=== PATIENT | male | born 2005 | race Two or more races ===

== ENCOUNTER 2024-08-25 19:58 | Emergency (ER) | payer MEDICAID, SELFPAY ==
[2024-08-25 19:59] VITALS: BMI 17.6
[2024-08-25 20:30] VITALS: BP 106/71; PULSE 82; RESP 17; TEMP 36.3; O2SAT 97
--- NOTE | 2024-08-25 21:28 | EDRME_ITS ---
Rapid Medical Screening Exam [facility] Arrival date/time: 08/25/24 19:58 19M with history of occasional marijuana use presents to ED with 1 day of epigastric pain and N/V. Chief Complaint: Nausea/Vomiting/Diarrhea Vital signs: Vital Signs Temperature 97.4 F 08/25/24 20:30 Pulse Rate 82 08/25/24 20:30 Respiratory Rate 17 08/25/24 20:30 Blood Pressure 106/71 08/25/24 20:30 Pulse Oximetry (%) 97 08/25/24 20:30 Oxygen Delivery Method Room Air 08/25/24 20:30
[2024-08-25 21:48] LABS: Basophils # (Auto) 0.1 Thou/mm3 (0.0-0.2); Basophils % (Auto) 0 % (0-2.5); Eosinophils % (Auto) 0 % (0-10); Hematocrit 47.7 % (41.0-53.0); Hemoglobin 16.1 g/dL (13.5-16.0); Immature Granulocytes % (Auto) 0 % (0-0); Immature Granulocytes Auto 0.05 Thou/mm3 (0.00-0.00); Lymphocytes # (Auto) 1.2 Thou/mm3 (1.0-4.8); Lymphocytes % (Auto) 8 % (10-50); Mean Corpuscular HGB Conc 33.8 g/dl (31.0-37.0); Mean Corpuscular Volume 89 fL (80-100); Monocytes # (Auto) 0.7 Thou/mm3 (0.0-0.8); Monocytes % (Auto) 5 % (0-12); Neutrophils # (Auto) 13.1 Thou/mm3 (1.8-7.7); Neutrophils % (Auto) 87 % (37-80); Nucleated Red Blood Cell % 0 /100 WBC (0); Platelet Count 259 Thou/mm3 (140-440); RDW Standard Deviation 42.6 fL (35.1-43.9); Red Blood Count 5.37 Miln/mm3 (4.50-5.90); White Blood Count 15.1 Thou/mm3 (3.8-10.6)
[2024-08-25] MEDS: ONDANSETRON ODT 4 MG TABRAP PO (21:54)
[2024-08-25 22:09] LABS: Alanine Aminotransferase 16 U/L (10-49); Albumin, Serum 4.9 gm/dL (3.5-5.0); Albumin/Globulin Ratio 1.4 (1.2-2.2); Alkaline Phosphatase 95 U/L (46-116); Anion Gap 5 (7-16); Aspartate Amino Transferase 25 U/L (0-34); BUN/Creatinine Ratio 15 Ratio (12-20); Blood Urea Nitrogen 17 mg/dL (9-23); Calcium 9.8 mg/dL (8.3-10.6); Calcium (Corrected) 9.8 mg/dL (8.5-10.1); Carbon Dioxide 31.8 mMol/L (20.0-31.0); Chloride 101 mMol/L (98-107); Creatinine (Component) 1.1 mg/dL (0.6-1.3); Estimated Creatinine Clearance 88.6 mL/min (>60); Globulin 3.4 gm/dL (2.3-3.5); Glucose 101 mg/dL (74-106); Lipase 36 U/L (12-53); Osmolality,Calculated 277 (275-295); Potassium 4.8 mMol/L (3.4-5.1); Sodium 138 mMol/L (136-145); Total Protein 8.3 gm/dL (5.7-8.2); eGFR > 60 See Note
[2024-08-25] MEDS: MG HYD/AL HYD/SIME (Maalox Reg) SUSP 30 ML UDC PO (22:19)
[2024-08-25 23:17] VITALS: BP 113/73; PULSE 84; RESP 18; TEMP 36.9; O2SAT 97
[2024-08-26 00:15] LABS: Collection Type, Urine Clean Catch; Squamous Epithelial Cell,Urine 0 /hpf (0-5); WBC,Urine 0 /hpf (0-5)
[2024-08-26 00:23] LABS: Bilirubin,Urine Negative (Negative); Blood,Urine 3+ (Negative); Clarity,Urine Turbid (Clear/Hazy); Color,Urine Yellow (Lt Yel-Yel); Glucose, Urine Negative (Negative); Ketones,Urine Negative (Negative); Leukocyte Esterase,Urine Negative (Negative); Nitrite,Urine Negative (Negative); PH,Urine 6.5 (5.0-7.0); Protein,Urine 3+ (Neg - Trace); RBC,Urine 283 /hpf (0-3); Specific Gravity,Urine 1.033 (1.001-1.035)
[2024-08-26 00:28] LABS: Amphetamine/Methamp Scrn,U Negative (Negative); Barbiturate Screen,Urine Negative (Negative); Benzodiazepines Screen,Urine Negative (Negative); Benzoylecgonine Screen, Ur Negative (Negative); Fentanyl Screen,Urine Negative (Negative); Opiate Screen,Urine Negative (Negative); THC Screen,Urine Negative (Negative)
--- NOTE | 2024-08-26 00:28 | XR_ITS ---
Examination: CT abdomen with intravenous contrast CT pelvis with intravenous contrast 2-D coronal reconstructions 2-D sagittal reconstructions Date and time of exam:September 05, 2024 0301 hrs. Indications: Onset abdominal pain nausea today. CTDI: vol (mGy) 4.26 DLP: (mGycm) 238 Technique: Multiple axial sections of the abdomen and pelvis have been obtained. 64 slice high-resolution scanner used. 3 mm axial sections have been obtained, post intravenous injection 60 cc [id number] 2-D sagittal, coronal reconstructions obtained. Low dose protocols were performed. One or more of the following dose reduction techniques were used; automated exposure control, adjustment of the mA and/or KV according to patient size, use of iterative reconstruction technique. Findings: No focal liver splenic or renal lesion Aorta normal size No pancreatic edema No bowel obstruction No pericecal inflammatory change Urinary bladder intact No prostatomegaly The osseous structures are intact Impression: No renal or ureteral calculi, no hydronephrosis No CT findings of appendicitis bowel obstruction or diverticulitis
[2024-08-26 00:46] VITALS: BP 158/87; PULSE 65; RESP 17; TEMP 36.7; O2SAT 96
--- NOTE | 2024-08-26 01:32 | PD.EDNV ---
Nausea/Vomit./Diarrhea-RME/HPI General Chief complaint: Nausea/Vomiting/Diarrhea Stated complaint: VOMITING Arrival date/time: 08/25/24 19:58 RME / HPI RME / HPI Narrative: 08/25/24 19:58 19M with history of occasional marijuana use presents to ED with 1 day of epigastric pain and N/V. ------ Dr. Macias?s Main ED Evaluation: 19yo male with no significant past medical history presents to the ED for a chief complaint of nausea and vomiting x 1 day. Patient states his vomiting has been persistent for the last one day. He reports having associated intermittent epigastric pain for the last 2 weeks. Patient denies any fever, chills, diarrhea, constipation, UTI symptoms, hematuria or any other associated symptoms. Denies any PSH or taking any medications. No known allergies. Patient states he was treated for pneumonia 3 weeks ago. Also notes he overdosed on fentanyl 2 weeks ago and was seen at [facility]. Related Data Home Medications ?Medication ?Instructions ?Recorded ?Confirmed Promethazine Hcl SYRUP * 10 ml PO #0 mL 09/21/17 (PHENERGAN SYRUP *) acetaminophen 500 mg tablet 500 mg PO Q6HR PRN PAIN / FEVER #0 09/21/17 (Tylenol Extra Strength) tabs Previous Rx's ?Medication ?Instructions ?Recorded Ibuprofen * (MOTRIN *) 400 mg PO Q6HR PRN PAIN #20 tabs 09/22/17 ondansetron 4 mg disintegrating 4 mg PO Q6HR PRN NAUSEA OR 09/22/17 tablet (Zofran ODT) VOMITING #10 tabs Allergies Allergy/AdvReac Type Severity Reaction Status Date / Time No Known Allergies Allergy Verified 08/25/24 19:58 Review of Systems Review of Systems Systems Reviewed: All systems reviewed, normal except as documented Narrative Review of Systems: GEN: No fever, no chills, no weight loss EYES: No discharge, no visual changes, no pain HEENT: No ear pain, no congestion, no sore throat PULM: No shortness of breath, no cough, no congestion CV: No chest pain, no dyspnea on exertion, no palpitations GI: + nausea, + vomiting, no diarrhea, + pain, no constipation : No frequency, no urgency and no dysuria MUSC/SKEL No joint pain, no back pain SKIN: No rash PSYCH: No hallucinations, no depression HEME/LYMPH: No easy bleeding or bruising tendencies NEURO: No weakness, no headache Past Medical History Past Medical History CARDIAC: Negative Cardiac Disorders or Congestive Heart Failure RESPIRATORY: Negative Chronic Obstructive Pulmonary Disease (COPD) or Asthma GENITOURINARY: Negative Renal Disease ENDOCRINE: Negative Diabetes Mellitus Type 1 or Diabetes Mellitus Type 2 HEMATOLOGIC: Negative Sickle Cell Disease Social History SMOKING STATUS: Never smoker ED Exam Narrative Physical exam: GENERAL APPEARANCE: Well hydrated, well nourished, in no acute distress. VITALS: All vitals were reviewed and the pulse ox is 96% on room air which is normal according to my interpretation. HEENT: Normocephalic, atraumatic, EOMI, EACs are patent. There is no bulge or retraction. Throat without erythema or exudate. Moist oromucosa. No jaundice NECK: Supple, no JVD or bruits. CARDIOVASCULAR: Heart regular without S3-S4 or murmur. No rubs or gallops. LUNGS/CHEST: Clear to auscultation bilaterally. No rales, rhonchi, or wheezing. Normal inspection. ABDOMEN: Normal bowel sounds. No pulsatile masses. No rebound, rigidity, or guarding. No incarcerated hernia. Normal inspection. EXTREMITIES: No edema, clubbing, or cyanosis. Intact CSM. Normal inspection and palpation. SKIN: Warm and dry without rashes. Normal inspection and palpation. MUSCULOSKELETAL: No gross deformity, full ROM all extremities. Normal inspection and palpation. NEURO: Alert and oriented x3. Cranial nerves II through XII grossly intact. There are no other motor or sensory deficits noted. PSYCHIATRIC: Normal mood and affect. No psychosis. Course Quality Measures none Orders Category Date Time Status CT Screening NOW Care 08/26/24 00:28 Active Insert IV NOW Care 08/26/24 00:[address] abdomen pelvis w con Stat Exams 08/26/24 00:28 Taken CBC Stat Lab 08/25/24 21:38 Completed CMP [Comprehensive Metabolic Panel] Stat Lab 08/25/24 21:38 Completed Drug Screen,Urine Stat Lab 08/26/24 00:08 Completed Lipase Stat Lab 08/25/24 21:38 Completed UA [Urinalysis] Stat Lab 08/26/24 00:08 Completed Ondansetron Odt [Zofran Odt] Med 08/25/24 21:27 Discontinued 4 mg PO X1 ONE Sodium Chloride 0.9% 1000 ml [Ns] 1,000 ml Med 08/26/24 01:49 Discontinued IV 500 mls/hr mg Hyd/Al Hyd/Deyanira Susp [Maalox Susp] Med 08/25/24 21:27 Discontinued 30 ml PO X1 ONE Vital Signs Vital signs: Vital Signs Temperature 97.4 F 08/25/24 20:30 Pulse Rate 82 08/25/24 20:30 Respiratory Rate 17 08/25/24 20:30 Blood Pressure 106/71 08/25/24 20:30 Pulse Oximetry (%) 97 08/25/24 20:30 Oxygen Delivery Method Room Air 08/25/24 20:30 Nausea/Vomiting/Diarrhea MDM Narrative MDM Narrative:: Scribe Attestation: 08/26/24 - Saige Castro am scribing for and in the presence of Dr. Macias Provider Notation: Although this document has been carefully reviewed, there may still be some phonetic and other typographical errors. These errors are purely grammatical due to imperfections in the software program and should not be construed in any way to compromise the substance of the patient's medical care during this visit. -------- WBC count of 15,000. CMP is unremarkable. UA is showing some red blood cells microscopically. Toxicology is negative. CT abdomen and pelvic was reviewed and interpreted by me as follow: Liver gallbladder spleen kidneys unremarkable. No pericecal inflammation no stranding. No free fluid or free air. No bowel obstruction. In the emergency department the patient received some IV fluid by me. There is no surgical abdomen at this time. Patient data External records reviewed:: [facility] previous records (Per chart review, patient has no relevant previous ED visits or admissions to this facility.) Clinical information provided by:: patient Social determinants that could affect healthcare access:: substance use Patient has the following chronic illnesses:: none How is presenting disease/condition affected by chronic disease/condition?: no chronic disease Evaluation data The following diagnostics were reviewed and interpreted by me:: lab results and radiology exam(s) Lab and/or radiology exams considered but not ordered:: none Interpretation Summary: See above under MDM narrative. ----- [facility] Preliminary Report Draft Patient: ROBIN GARCIA [facility]. Record#: [id number] Birthdate: 2005 Age/Sex: 19 / M Location: [facility] Attending Dr: Ordering Physician: Date of Service: Procedure(s): Accession Number(s): cc: ~ CT scan of the abdomen and pelvis with intravenous contrast (axial sections with sagittal and coronal reformats) August 26, 2024 0301 hours Clinical History: Generalized abdominal pain. Comparison: No prior study is available for comparison. Findings: The lung bases are clear. The liver, gallbladder, pancreas, spleen, kidneys and adrenals are unremarkable. No evidence of bowel obstruction. No evidence of appendicitis. There is no mesenteric or retroperitoneal adenopathy. The urinary bladder is unremarkable. There is no free fluid or free air. The osseous structures are unremarkable. Impression: No evidence of acute intra-abdominal or pelvic pathology. Report Electronically Signed By: Isauro Fu 08/26/2024 3:58:28 AM [EST] Medications / Prescriptions Medications / Prescriptions considered but not ordered:: none Medication administrations:: Medication Administration History Discontinued Medications Al Hydrox/Mg Hydrox/Simethicone (Mg Hyd/Al Hyd/Deyanira (Maalox Reg) Susp 30 Ml Udc) 30 ml PO X1 ONE Stop: 08/25/24 21:28 Last Admin: 08/25/24 22:19 Dose: 30 ml Documented By: LORENA Sodium Chloride (Ns) 1,000 mls @ 500 mls/hr IV .Q2H ONE Stop: 08/26/24 03:48 Last Admin: 08/26/24 02:56 Dose: 500 mls/hr Documented By: DELILAH Ondansetron HCl (Ondansetron Odt 4 Mg Tabrap) 4 mg PO X1 ONE; Protocol Stop: 08/25/24 21:28 Last Admin: 08/25/24 21:54 Dose: 4 mg Documented By: LORENA see above Consultations Consultation(s) initiated? (list below): No Diagnosis Nausea Differential Diagnosis: gastroenteritis, drug-induced nausea and vomiting and dehydration Most likely diagnosis given after review of the tests above:: Abdominal pain. Nausea and vomiting Admission Indicated Admission indicated?: not indicated Admission Request Was there a request for admission?: No Disposition Plan Disposition Plan: Discharge Discharge Attestation Discharge Attestation: The patient and all family members were given an opportunity to ask questions and understood the discharge instructions. Discharge instructions specifically effects, indications for sooner follow up or return to the emergency department, and the expected course of current diagnosis. Patient condition: Stable Discharge Plan Plan Patient Disposition: HOME (Self Care) Disposition Comment: Stable to [place] home Prescriptions/Referrals Prescriptions/Med Rec: No Action acetaminophen [Tylenol Extra Strength] 500 MG tablet 500 mg PO Q6HR PRN (Reason: PAIN / FEVER) Qty: 0 Promethazine Hcl SYRUP * (PHENERGAN SYRUP *) 6.25 MG/5 ML syrup 10 ml PO Qty: 0 Patient Comments: FOR NAUSEA OR VOMITING Ibuprofen * (MOTRIN *) 400 MG tablet 400 mg PO Q6HR PRN (Reason: PAIN) Qty: 20 0RF ondansetron [Zofran ODT] 4 MG/UDTABLET tablet,disintegrating 4 mg PO Q6HR PRN (Reason: NAUSEA OR VOMITING) Qty: 10 0RF Referrals: No Primary/Family,Physician [Primary Care Provider] - In 1 week Problem List Clinical Impression: Abdominal pain, Vomiting Patient/Caregiver Discharge Instructions Education Materials: Abdominal Pain, ED Vomiting (Adult) Additional Instructions: Liquid diet for 24 hours then advance as tolerated. See your doctor for recheck and further care in 3 days. Return to the emergency department if condition worsens or if new symptoms develop including fever and intractable vomiting. Print Language: Albanian Stand Alone Forms: [facility] Award Info., Patient Portal Info Letter
[2024-08-26] MEDS: SODIUM CHLORIDE 0.9% 1000 ML 1,000 ML 500 ML IV (02:56)
--- NOTE | 2024-08-26 03:59 | PRELIM_ITS ---
CT scan of the abdomen and pelvis with intravenous contrast (axial sections with sagittal and coronal reformats) August 26, 2024 0301 hoursClinical History: Generalized abdominal pain.Comparison: No p rior study is available for comparison. Findings:The lung bases are clear.The liver, gallbladder, pa ncreas, spleen, kidneys and adrenals are unremarkable.No evidence of bowel obstruction. No evidence o f appendicitis. There is no mesenteric or retroperitoneal adenopathy.The urinary bladder is unremarka ble. There is no free fluid or free air.The osseous structures are unremarkable.Impression:No evidenc e of acute intra-abdominal or pelvic pathology. Report Electronically Signed By: Isauro Fu 08/26/2024 3:58:28 AM [EST]
[2024-08-26 05:16] VITALS: BP 112/72; PULSE 67; RESP 18; TEMP 36.8; O2SAT 98
== END 2024-08-26 05:17 | disposition home or self-care (01) ==
PROVIDERS: Physician Assistant; Emergency Provider Emergency Medicine
DX: R10.84 Generalized abdominal pain (principal); R11.10 Vomiting, unspecified
CPT/HCPCS: 36415; 74177; 80053; 80307; 81001; 83690; 85025; 96360; 96361; 99285; A4649; J7030; Q0162; Q9967; A9270